=== PATIENT | male | born 1990 | race Caucasian/White ===

== ENCOUNTER 2017-12-19 14:56 | Inpatient (IN) | payer MEDICAID, OTHER ==
--- NOTE | 2017-12-19 15:54 | ED ---
General Adult HPI - General Chief complaint: Psychiatric Symptoms Stated complaint: Mental Health Time Seen by Provider: 12/19/17 15:14 Source: patient, RN notes reviewed, old records reviewed Mode of arrival: ambulatory Limitations: no limitations - History of Present Illness Initial comments: This is a 19-year-old male the ER patient does say for evaluation regarding psychiatric illness. Patient states and admits to drug abuse, alcohol. Patient denies any other drugs no other psychiatric evaluations no psychiatric medications. Patient has been drinking a lot lately. States he feels suicidal and wants to kill himself he has felt suicidal final the past but this is much worse - Related Data Home Medications Medication Instructions Recorded Confirmed Albuterol Inhaler [Ventolin Hfa 2 puff INHALATION RT-Q6H PRN 06/02/16 12/19/17 Inhaler] Allergies Allergy/AdvReac Type Severity Reaction Status Date / Time peanut Allergy Anaphylaxis Verified 12/19/17 15:54 ANTIBIOTIC (UNKNOWN) Allergy Unknown Uncoded 12/19/17 15:01 Review of Systems ROS Statement: Those systems with pertinent positive or pertinent negative responses have been documented in the HPI. ROS Other: All systems not noted in ROS Statement are negative. Past Medical History Past Medical History: Asthma Additional Past Medical History / Comment(s): intubated from asthma in past History of Any Multi-Drug Resistant Organisms: MRSA Date of last positivie culture/infection: 2014 MDRO Source:: chest Past Surgical History: No Surgical Hx Reported Past Psychological History: No Psychological Hx Reported Smoking Status: Current every day smoker Past Alcohol Use History: Daily Past Drug Use History: None Reported General Exam Limitations: no limitations General appearance: alert, in no apparent distress Head exam: Present: atraumatic, normocephalic, normal inspection Eye exam: Present: normal appearance, PERRL, EOMI. Absent: scleral icterus, conjunctival injection, periorbital swelling ENT exam: Present: normal exam, mucous membranes moist Neck exam: Present: normal inspection. Absent: tenderness, meningismus, lymphadenopathy Respiratory exam: Present: normal lung sounds bilaterally. Absent: respiratory distress, wheezes, rales, rhonchi, stridor Cardiovascular Exam: Present: regular rate, normal rhythm, normal heart sounds. Absent: systolic murmur, diastolic murmur, rubs, gallop, clicks GI/Abdominal exam: Present: soft, normal bowel sounds. Absent: distended, tenderness, guarding, rebound, rigid Extremities exam: Present: normal inspection, full ROM, normal capillary refill. Absent: tenderness, pedal edema, joint swelling, calf tenderness Back exam: Present: normal inspection Neurological exam: Present: alert, oriented X3, CN II-XII intact Psychiatric exam: Present: normal affect, normal mood Skin exam: Present: warm, dry, intact, normal color. Absent: rash Course Vital Signs 12/19/17 14:57 Temperature 98.1 F Pulse Rate 98 Respiratory 18 Rate Blood Pressure 134/66 O2 Sat by Pulse 97 Oximetry - Reevaluation(s) Reevaluation #1: 12/19/17 15:54 Patient is medically clear for psychiatric evaluation Medical Decision Making - Medical Decision Making 27 male the admitted for psychiatric evaluation and treatment - Lab Data Lab Results 12/19/17 Range/Units 16:40 Urine Opiates Screen Not Detected (NotDetected) Ur Oxycodone Screen Not Detected (NotDetected) Urine Methadone Screen Not Detected (NotDetected) Ur Propoxyphene Screen Not Detected (NotDetected) Ur Barbiturates Screen Not Detected (NotDetected) U Tricyclic Antidepress Not Detected (NotDetected) Ur Phencyclidine Scrn Not Detected (NotDetected) Ur Amphetamines Screen Not Detected (NotDetected) U Methamphetamines Scrn Not Detected (NotDetected) U Benzodiazepines Scrn Not Detected (NotDetected) Urine Cocaine Screen Not Detected (NotDetected) U Marijuana (THC) Screen Not Detected (NotDetected) Disposition Clinical Impression: Depression, Suicidal ideation Disposition: TRANSFER TO PSYCH HOSP/UNIT Condition: Fair Is patient prescribed a controlled substance at d/c from ED?: No Referrals: None,Stated [Primary Care Provider] - 1-2 days
[2017-12-19 17:30] LABS: Amphetamine Screen,Urine Not Detected (NotDetected); Barbiturate Screen,Urine Not Detected (NotDetected); Benzodiazepines Screen,Urine Not Detected (NotDetected); Cocaine Screen,Urine Not Detected (NotDetected); Methadone Screen, Urine Not Detected (NotDetected); Opiate Screen,Urine Not Detected (NotDetected); Oxycodone Screen, Urine Not Detected (NotDetected); Phencyclidine Screen,Urine Not Detected (NotDetected); Tricyclic Antidepressant,Urine Not Detected (NotDetected); Urn Cannabinoid Scrn Not Detected (NotDetected)
[2017-12-19] MEDS ORDERED: ACETAMINOPHEN TAB 325 MG TAB PO PRN (18:05)
[2017-12-19] MEDS ORDERED: LORazepam 1 MG TAB PO PRN (18:05)
[2017-12-19] MEDS ORDERED: MAGNESIUM HYDROXIDE 2,400 MG/10 ML CUP PO PRN (18:05)
[2017-12-19] MEDS ORDERED: ALBUTEROL INHALER 60 PUFF/8 GM INHALER INHALATION PRN (18:10)
[2017-12-19 18:46] VITALS: BMI 28.4
[2017-12-19] MEDS: NICOTINE 21MG/24HR PATCH TRANSDERM SCH (19:03)
--- NOTE | 2017-12-19 21:51 | P.MDCNMH ---
History of Present Illness H&P Date: 12/19/17 Chief Complaint: medical management 27 year old male with history of mild persistent asthma, presented for psychiatric evaluation due to relapse into daily heavy drinking for 1 week now, and suicidal ideation. patient reports an abscess in his upper back over thomas left scapula, he noticed for couple days now. denies any fever, chills, pain, or drainage. otherwise patient has no other medical concerns, he uses albuterol inhaler twice a day , but not during the night, he continues to smoke cigarettes. Review of Systems Constitutional: Patient denies fever, denies chills, denies night sweating, denies significant weight changes Eyes: Patient denies visual changes, denies eye pain ENT: Patient denies ear pain, denies rhinorrhea, denies sore throat Cardiovascular: Patient denies chest pain, denies exertional dyspnea, denies peripheral leg edema, denies orthopnea, denies paroxysmal nocturnal dyspnea Respiratory:Patient denies cough, denies wheezing, denies shortness of breath Gastrointestinal: Patient denies diarrhea, denies constipation, denies nausea , denies vomiting, denies abdominal pain Genitourinary: Patient denies dysuria, denies hematuria, denies changes in urinary habits, denies genital lesions Musculoskeletal: Patient denies muscle pain, denies joint pain Psychiatric: Patient reports depressed mood, reports suicidal ideation Endocrine: Patient denies heat intolerance, denies cold intolerance, denies excessive thirst, denies polyuria Neurological: Patient denies focal neurologic deficits, denies weakness, denies numbness, denies tingling Hem/Lymphatic: Patient denies bleeding tendency, denies bruising, denies swollen lymph glands Allergic/Immun: Patient denies recent allergic reactions Skin: Patient denies rashes, denies pruritis, denies ulcers Past Medical History Past Medical History: Asthma Additional Past Medical History / Comment(s): intubated from asthma in past History of Any Multi-Drug Resistant Organisms: MRSA Date of last positivie culture/infection: 2014 MDRO Source:: chest Past Surgical History: No Surgical Hx Reported Smoking Status: Current every day smoker - Past Family History Family Additional Family Medical History / Comment(s): Denies any CAD or cancer Medications and Allergies Home Medications Medication Instructions Recorded Confirmed Type Albuterol Inhaler [Ventolin Hfa 2 puff INHALATION RT-Q6H PRN 06/02/16 12/19/17 History Inhaler] Allergies Allergy/AdvReac Type Severity Reaction Status Date / Time peanut Allergy Anaphylaxis Verified 12/19/17 15:54 ANTIBIOTIC (UNKNOWN) Allergy Unknown Uncoded 12/19/17 15:01 Physical Exam Vitals: Vital Signs Temp Pulse Pulse Resp BP BP Pulse Ox 12/19/17 18:40 98.4 F 76 20 112/72 98 12/19/17 18:03 97.6 F 78 18 123/65 96 12/19/17 14:57 98.1 F 98 18 134/66 97 Intake and Output 12/19/17 12/19/17 12/19/17 06:59 14:59 22:59 Other: Weight 77.111 kg 77.5 kg Constitutional: No acute distress, conversant, pleasant Eyes: Anicteric sclerae, moist conjunctiva, no lid-lag Pupils equal round reactive to light ENMT: NC/AT Oropharynx clear, no erythema, or exudates Neck: Supple, FROM, no masses, or JVD No carotid bruits No thyromegaly Lungs: Clear to auscultation Clear to percussion Normal respiratory effort, no accessory muscle use Cardiovascular: Heart regular in rate and rhythm, No murmurs, gallops, or rubs No peripheral edema Abdominal: Soft Nontender, no guarding, rebound or rigidity Abdomen moving with respiration Normoactive bowel sounds No hepatomegaly, No splenomegaly No palpable mass No abdominal wall hernia noted Skin: There is a 3 x 3 cm fullness subcutaneous nodule, over the left scapula no tenderness to palpation, positive for fluctuation, no drainage, erythema, Normal temperature, tone, texture, turgor No induration No rash, lesions No ulcers Extremities: No digital cyanosis No clubbing Pedal pulses intact and symmetrical Radial pulses intact and symmetrical No calf tenderness Psychiatric: Alert and oriented to person, place and time Appropriate affect fair judgment Neuro Muscles Strength 5/5 in all 4 extremities Sensation to light touch grossly present throughout Cranial nerves II-XII grossly intact No focal sensory deficits Lymphatics: no palpable cervical or supraclavicular , or inguinal lymph nodes Cranial Nerve Examination - Cranial Nerves Cranial Nerve II- Optic: Intact Cranial Nerve III- Oculomotor: Intact Cranial Nerve IV- Trochlear: Intact Cranial Nerve V- Trigeminal: Intact Cranial Nerve - Abducens: Intact Cranial Nerve VII- Facial: Intact Cranial Nerve VIII- Auditory: Intact Cranial Nerve IX- Glossopharyngeal: Intact Cranial Nerve X- Vagus: Intact Cranial Nerve XI- Accessory: Intact Cranial Nerve XII- Hypoglossal: Intact Assessment and Plan Plan: 27-year-old male with history of mild persistent asthma, presented to Hospital for psychiatric evaluation due to heavy drinking and suicidal ideation. #Depression #Suicidal ideation Management per psych #Abscess over the back Surgery consult for I&D #Smoking Patient counseled to quit smoking Nicotine replacement therapy offered #Alcohol abuse Monitor for withdrawal symptoms Thiamine and folic acid Benzos for alcohol withdrawal symptoms CIWA #Mild persistent asthma Albuterol when necessary DVT prophylaxis Low risk and ambulatory Thank you for allowing us to participate in the care of this patient. We will follow peripherally. Do not hesitate to contact us with questions. Someone can be reached from the [facility] hospitalist group at all hours of the day at [phone].
[2017-12-20 06:49] VITALS: PULSE 66
[2017-12-20] MEDS: NICOTINE 21MG/24HR PATCH TRANSDERM SCH (09:15)
[2017-12-20] MEDS ORDERED: THIAMINE 100 MG TAB PO SCH (12:00)
[2017-12-20] MEDS ORDERED: FOLIC ACID 1 MG TAB PO SCH (12:00)
--- NOTE | 2017-12-20 13:08 | P.GSCN ---
History of Present Illness Consult date: 12/20/17 Reason for Consult: Infected cyst left posterior back History of present illness: This is a 19-year-old male who is admitted to the mental health unit for depression. She has a small epidermal inclusion cyst with some redness on his back. Denies a significant pain Past Medical History Past Medical History: Asthma Additional Past Medical History / Comment(s): intubated from asthma in past History of Any Multi-Drug Resistant Organisms: MRSA Year Discovered:: 2014 MDRO Source:: chest Past Surgical History: No Surgical Hx Reported Smoking Status: Current every day smoker - Past Family History Family Additional Family Medical History / Comment(s): Denies any CAD or cancer Medications and Allergies Home Medications Medication Instructions Recorded Confirmed Type Albuterol Inhaler [Ventolin Hfa 2 puff INHALATION RT-Q6H PRN 06/02/16 12/19/17 History Inhaler] Allergies Allergy/AdvReac Type Severity Reaction Status Date / Time peanut Allergy Anaphylaxis Verified 12/19/17 15:54 ANTIBIOTIC (UNKNOWN) Allergy Unknown Uncoded 12/19/17 15:01 Surgical - Exam Vital Signs Temp Pulse Resp BP Pulse Ox 98.1 F 98 18 134/66 97 12/19/17 14:57 12/19/17 14:57 12/19/17 14:57 12/19/17 14:57 12/19/17 14:57 - General well developed, no distress - Integumentary Patient has a small 1 cm epidermal inclusion cyst. There is some minimal redness around the cyst. There is no evidence of any active abscess. Assessment and Plan Assessment: Chronically inflamed epidermal inclusion cyst. Patient will be discharged home tomorrow per the patient. No surgical intervention is planned this time. He may benefit from some oral antibiotics. We will see him next week in the office for follow-up.
[2017-12-21] MEDS: MAG HYDROX/AL HYDROX/SIMETH 30 ML CUP PO PRN ×2 (01:35→08:23)
[2017-12-21 06:36] VITALS: BP 142/70; RESP 18; TEMP 97.9
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
--- NOTE | 2017-12-21 10:12 | P.DS ---
Providers Date of admission: 12/19/17 17:45 Expected date of discharge: 12/21/17 Attending physician: Emigdio Ernandez Consults: 12/19/17 18:05 Consult Physician Routine Consulting Provider: Sandoval Watson Consult Reason/Comments: H&P for mental health admission Do you want consulting provider notified?: Yes 12/19/17 21:41 Consult Physician Routine Consulting Provider: Conrad Lynn Consult Reason/Comments: abscess on the back for I&D Do you want consulting provider notified?: Yes Primary care physician: Stated None Hospital Course: Patient had his psychiatric evaluation, physical examination and psychosocial evaluation. After psychiatric Examination it was decided not to start him on any medication. However the physician who gave him physical examination put him on folic acid, thiamine and made a surgical consult for a chronically inflamed epidermal inclusion cyst on the back. Since patient told him that he will be leaving today, the performance test consultant will be seeing him in his office next week. Patient did not show any evidence of psychosis suicide or homicide behavior. He socialized with peers, attended some groups and got along well without any evidence of major psychiatric diagnosis. In view of this it was agreed to discharge him. Condition at the time of discharge: This is a white ambulatory male with good hygiene. He does not show any psychomotor agitation or retardation. His speech is spontaneous relevant and goal-directed. His mood is euthymic and affect is appropriate. He continues to deny hallucinations, delusional thinking , suicide and homicide thoughts. He is well oriented with adequate memory concentration general fund of knowledge etc. His insight and judgment are fairly adequate. Diagnosis on discharge: Alcohol use disorder severe F 10.20. 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 ALLERGY to peanut and unknown antibiotic. Bronchial asthma. Chronically inflamed epidermal inclusion cyst on the back. Patient was advised and agreed to seek counseling to learn better coping skills about alcohol abuse. Patient Condition at Discharge: Good Plan - Discharge Summary Discharge Rx Participant: No New Discharge Prescriptions: Continue Albuterol Inhaler [Ventolin Hfa Inhaler] 2 puff INHALATION RT-Q6H PRN PRN Reason: Shortness Of Breath Discharge Medication List Albuterol Inhaler [Ventolin Hfa Inhaler] 2 puff INHALATION RT-Q6H PRN 06/02/16 [ History] Follow up Appointment(s)/Referral(s): [facility] [NON-STAFF] - 1 Week Conrad Lynn MD [STAFF PHYSICIAN] - 1 Week
== END 2017-12-21 12:10 | disposition home or self-care (01) | DRG 897 ==
LOC: EC 14:56 → 3MHU 17:45
PROVIDERS: ADMIT Psychiatry & Neurology Psychiatry; ATTEND Psychiatry & Neurology Psychiatry
DX: F10.10 Alcohol abuse, uncomplicated (principal); R45.851 Suicidal ideations; F17.210 Nicotine dependence, cigarettes, uncomplicated; F32.9 Major depressive disorder, single episode, unspecified; F60.9 Personality disorder, unspecified; J45.30 Mild persistent asthma, uncomplicated; L72.9 Follicular cyst of the skin and subcutaneous tissue, unspecified; F60.2 Antisocial personality disorder; Z91.010 Allergy to peanuts; Z88.1 Allergy status to other antibiotic agents; Z59.0 Homelessness; Z86.14 Personal history of Methicillin resistant Staphylococcus aureus infection; Z81.8 Family history of other mental and behavioral disorders; Z71.6 Tobacco abuse counseling
CPT/HCPCS: 80306; 82075; 99285

== ENCOUNTER 2018-07-06 03:02 | Emergency (ER) | payer OTHER ==
[2018-07-06] MEDS ORDERED: ONDANSETRON 4 MG/2 ML VIAL IVP STA (03:51)
[2018-07-06] MEDS ORDERED: PANTOPRAZOLE 40 MG/10 ML VIAL IVP STA (03:51)
[2018-07-06] MEDS ORDERED: KETOROLAC 30 MG/ML 1 ML VIAL IVP STA (03:51)
[2018-07-06] MEDS ORDERED: SODIUM CHLORIDE 0.9% 1,000 ML IV STA (03:51)
--- NOTE | 2018-07-06 04:01 | ED ---
Abdominal Pain HPI - General Chief Complaint: Abdominal Pain Stated Complaint: Abd pain, vomiting blood Time Seen by Provider: 07/06/18 03:51 Source: patient, RN notes reviewed, old records reviewed Mode of arrival: ambulatory Limitations: no limitations - History of Present Illness Initial Comments: This is a 27-year-old male to the ER for evaluation. Said patient resents ER for evaluation regards to abdominal pain, epigastric and periumbilical bowel pain. Patient is just released from [facility] is morning this he has follow-up with [facility]. Patient states about pain is been going well for 3 days ago he was in [facility] no nausea no vomiting no diarrhea. Patient states he has had prior GI in the past including upper GI was scope that did show persistent coin in his stomach. Patient denies any other significant complaint no fevers. MD Complaint: abdominal pain -: days(s) (3) Location: diffuse, periumbilical, epigastric, suprapubic Radiation: none Migration to: suprapubic Severity: moderate Severity scale (1-10): 5 Quality: aching Consistency: constant Improves With: nothing Worsens With: nothing, eating Context: other (incarceration) Associated Symptoms: denies other symptoms - Related Data Home Medications Medication Instructions Recorded Confirmed Albuterol Inhaler [Ventolin Hfa 2 puff INHALATION RT-Q6H PRN 06/02/16 12/19/17 Inhaler] Allergies Allergy/AdvReac Type Severity Reaction Status Date / Time peanut Allergy Anaphylaxis Verified 12/19/17 15:54 ANTIBIOTIC (UNKNOWN) Allergy Unknown Uncoded 12/19/17 15:01 Review of Systems ROS Statement: Those systems with pertinent positive or pertinent negative responses have been documented in the HPI. ROS Other: All systems not noted in ROS Statement are negative. Past Medical History Past Medical History: Asthma Additional Past Medical History / Comment(s): intubated from asthma in past History of Any Multi-Drug Resistant Organisms: MRSA Date of last positivie culture/infection: 2014 MDRO Source:: chest Past Surgical History: No Surgical Hx Reported Past Psychological History: No Psychological Hx Reported Smoking Status: Current every day smoker Past Alcohol Use History: None Reported Past Drug Use History: None Reported - Past Family History Family Additional Family Medical History / Comment(s): Denies any CAD or cancer General Exam Limitations: no limitations General appearance: alert, in no apparent distress Head exam: Present: atraumatic, normocephalic, normal inspection Eye exam: Present: normal appearance, PERRL, EOMI. Absent: scleral icterus, conjunctival injection, periorbital swelling ENT exam: Present: normal exam, mucous membranes moist Neck exam: Present: normal inspection. Absent: tenderness, meningismus, lymphadenopathy Respiratory exam: Present: normal lung sounds bilaterally. Absent: respiratory distress, wheezes, rales, rhonchi, stridor Cardiovascular Exam: Present: regular rate, normal rhythm, normal heart sounds. Absent: systolic murmur, diastolic murmur, rubs, gallop, clicks GI/Abdominal exam: Present: soft, normal bowel sounds. Absent: distended, tenderness, guarding, rebound, rigid Extremities exam: Present: normal inspection, full ROM, normal capillary refill. Absent: tenderness, pedal edema, joint swelling, calf tenderness Back exam: Present: normal inspection Neurological exam: Present: alert, oriented X3, CN II-XII intact Psychiatric exam: Present: normal affect, normal mood Skin exam: Present: warm, dry, intact, normal color. 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 No significant effects of abdominal pain in the emergency room. Computed tomography scan does show retained foreign body labwork is normal patient can be discharged home - Lab Data Result diagrams: 07/06/18 03:12 07/06/18 03:12 Lab Results 07/06/18 07/06/18 07/06/18 Range/Units 03:12 03:12 03:12 WBC 12.2 H (3.8-10.6) k/uL RBC 5.18 (4.30-5.90) m/uL Hgb 15.0 (13.0-17.5) gm/dL Hct 43.4 (39.0-53.0) % MCV 83.8 (80.0-100.0) fL MCH 29.0 (25.0-35.0) pg MCHC 34.7 (31.0-37.0) g/dL RDW 12.6 (11.5-15.5) % Plt Count 241 (150-450) k/uL Neutrophils % 59 % Lymphocytes % 28 % Monocytes % 9 % Eosinophils % 3 % Basophils % 0 % Neutrophils # 7.2 (1.3-7.7) k/uL Lymphocytes # 3.4 (1.0-4.8) k/uL Monocytes # 1.0 (0-1.0) k/uL Eosinophils # 0.3 (0-0.7) k/uL Basophils # 0.0 (0-0.2) k/uL Sodium 141 (137-145) mmol/L Potassium 4.1 (3.5-5.1) mmol/L Chloride 105 (98-107) mmol/L Carbon Dioxide 24 (22-30) mmol/L Anion Gap 12 mmol/L BUN 16 (9-20) mg/dL Creatinine 1.07 (0.66-1.25) mg/dL Est GFR (CKD-EPI)AfAm >90 (>60 ml/min/1.73 sqM) Est GFR (CKD-EPI)NonAf >90 (>60 ml/min/1.73 sqM) Glucose 98 (74-99) mg/dL Calcium 11.1 H (8.4-10.2) mg/dL Total Bilirubin 0.9 (0.2-1.3) mg/dL AST 34 (17-59) U/L ALT 39 (21-72) U/L Alkaline Phosphatase 76 (38-126) U/L Total Creatine Kinase 438 H (55-170) U/L CK-MB (CK-2) 3.0 H (0.0-2.4) ng/mL CK-MB (CK-2) Rel Index 0.7 Troponin I <0.012 (0.000-0.034) ng/mL Total Protein 7.3 (6.3-8.2) g/dL Albumin 4.8 (3.5-5.0) g/dL Amylase 45 (30-110) U/L Lipase 141 (23-300) U/L - Radiology Data Radiology results: report reviewed (CT abdomen pelvis shows retained foreign body likely coin), image reviewed Disposition Clinical Impression: Abdominal pain Disposition: HOME SELF-CARE Condition: Good Instructions: Abdominal Pain (ED) Is patient prescribed a controlled substance at d/c from ED?: No Referrals: None,Stated [Primary Care Provider] - 1-2 days
[2018-07-06 04:13] LABS: Basophils % (A) 0 %; Eosinophils # (A) 0.3 k/uL (0-0.7); Eosinophils % (A) 3 %; HCT 43.4 % (39.0-53.0); Lymphocytes # (A) 3.4 k/uL (1.0-4.8); Lymphocytes % (A) 28 %; MCHC 34.7 g/dL (31.0-37.0); MCV 83.8 fL (80.0-100.0); Mean Platelet Volume 6.9; Monocytes % (A) 9 %; Neutrophils # (A) 7.2 k/uL (1.3-7.7); Neutrophils % (A) 59 %; Platelet Count 241 k/uL (150-450); RBC 5.18 m/uL (4.30-5.90); RDW 12.6 % (11.5-15.5); WBC 12.2 k/uL (3.8-10.6)
--- NOTE | 2018-07-06 04:35 | CT ---
EXAMINATION TYPE: CT abdomen pelvis w con DATE OF EXAM: 07/06/2018 COMPARISON: None HISTORY: Epigastric and generalized abdominal pain CT DLP: 797.1 mGycm Automated exposure control for dose reduction was used. TECHNIQUE: Helical acquisition of images was performed from the lung bases through the pelvis. CONTRAST: Performed without Oral Contrast and with IV Contrast, patient injected with 100 mL of Isovue 300. FINDINGS: Lung bases are clear. There is no pleural effusion. Heart size is normal. Liver spleen pancreas gallb ladder appear normal. Bile ducts are nondilated. Stomach is dilated with fluid. There is dense metal artifact at the gastric outlet. There is no adrenal mass. The kidneys show satisfactory contrast opacification. There is no hydroneph rosis. Ureters are not dilated. Bladder distends smoothly. There is no inguinal hernia. There is no f ree fluid in the pelvis. I see no intestinal wall thickening. There are no dilated loops. Appendix ap pears normal and is located medial. The bony structures are intact. Bony pelvis appears normal. There is no sign of free air. There is no mesenteric edema or adenopathy. There is very minimal fat strand ing around the proximal duodenum. IMPRESSION: METALLIC FOREIGN BODY IN THE DISTAL STOMACH CONSISTENT WITH A COIN THE PATIENT SWALLOWED IS A CHILD A CCORDING TO THE HISTORY. THE STOMACH IS DILATED AND THE POSSIBILITY OF A GASTRIC OUTLET OBSTRUCTION S HOULD BE CONSIDERED. THIS COIN COULD BE PRODUCING GASTRIC OUTLET OBSTRUCTION. THERE IS MINIMAL FAT ST RANDING THAT SUGGESTS INFLAMMATORY PROCESS INVOLVING THE PROXIMAL DUODENUM.
[2018-07-06 04:44] LABS: ALT 39 U/L (21-72); AST 34 U/L (17-59); Albumin 4.8 g/dL (3.5-5.0); Alkaline Phosphatase 76 U/L (38-126); Amylase 45 U/L (30-110); Anion Gap 12 mmol/L; Blood Urea Nitrogen 16 mg/dL (9-20); Calcium 11.1 mg/dL (8.4-10.2); Carbon Dioxide 24 mmol/L (22-30); Chloride 105 mmol/L (98-107); Creatine Kinase 438 U/L (55-170); Glucose 98 mg/dL (74-99); Lipase 141 U/L (23-300); Potassium 4.1 mmol/L (3.5-5.1); Sodium 141 mmol/L (137-145); Total Bilirubin 0.9 mg/dL (0.2-1.3); Total Protein 7.3 g/dL (6.3-8.2)
[2018-07-06 04:56] LABS: Troponin I <0.012 ng/mL (0.000-0.034)
[2018-07-06 06:18] VITALS: BP 108/64; PULSE 68; RESP 14; TEMP 97.9
== END 2018-07-06 06:16 | disposition home or self-care (01) ==
LOC: EC 03:02
DX: T18.2XXA Foreign body in stomach, initial encounter (principal); J45.909 Unspecified asthma, uncomplicated; F17.200 Nicotine dependence, unspecified, uncomplicated; Z86.14 Personal history of Methicillin resistant Staphylococcus aureus infection; Z88.1 Allergy status to other antibiotic agents; Z91.010 Allergy to peanuts
CPT/HCPCS: 99284; 96374; 96375 ×2; 96361; 36415; 80053; 82150; 82550; 82553; 83690; 84484; 85025; 74177; J2405; J1885; C9113; Q9967